=== PATIENT | female | born 2000 | race Caucasian/White ===

== ENCOUNTER 2024-02-02 19:51 | Inpatient (IN) | payer BC ==
[~2024-02-02 19:51] MED LIST: Bupivacaine 0.25% HCL 30 ML VIAL ONE
[2024-02-02] MEDS ORDERED: fentaNYL 50 mcg/mL 1 mL Vial SLOW IVP PRN (20:12)
[2024-02-02] MEDS ORDERED: Promethazine HCl 25 MG/ML VIAL IM PRN (20:12)
[2024-02-02] MEDS ORDERED: Ondansetron PF 4 MG/2 ML Vial IVP PRN (20:12)
[2024-02-02] MEDS ORDERED: Lactated Ringer's 1,000 ML IV SCH (20:12)
[2024-02-02] MEDS ORDERED: hydrALAZINE 20 MG/ML VIAL SLOW IVP PRN (20:12)
[2024-02-02] MEDS ORDERED: HYDROcodone/Acetaminophen 5/325 mg Tablet PO PRN (20:12)
[2024-02-02] MEDS ORDERED: Ibuprofen 800 MG TAB PO PRN (20:12)
[2024-02-02] MEDS ORDERED: Oxytocin 30 units/NS 500 ML 500 ML IV SCH ×2 (20:12)
[2024-02-02 21:07] LABS: Hematocrit 31.2 % (34.9-44.5); Hemoglobin 10.3 g/dL (12.0-15.5); Mean Corpuscular Hemoglobin 24.5 pg (27.0-33.0); Mean Corpuscular Volume 74.1 fL (81.6-98.3); Mean Platelet Volume 10.9 fL (7.4-10.4); Platelet Count 305 10x3/uL (150-450); Red Blood Cell (RBC) Count 4.21 10x6/uL (3.90-5.03); White Blood Cell (WBC) Count 13.6 10x3/uL (3.5-10.5)
[2024-02-02 22:07] LABS: HBsAg Index 0.19 S/CO (0-0.99); Hep B Surf Ag - L&D Non-Reactive S/CO (NonReactive)
[2024-02-02 22:08] LABS: Syphilis Antibody Nonreactive (Nonreactive); Syphilis Antibody Index 0.04 S/CO (<1.00 Non-Reactive)
[2024-02-02 22:42] VITALS: BMI 32.1
[2024-02-02] MEDS: Misoprostol 100 MCG TAB VAG SCH (23:20)
[2024-02-03] MEDS: Oxytocin 30 units/NS 500 ML 500 ML IV SCH ×2 (07:30→19:30)
[2024-02-03] MEDS ORDERED: Ondansetron PF 4 MG/2 ML Vial IVP PRN ×2 (10:35→20:36)
[2024-02-03] MEDS ORDERED: Moisturizing Cream (Eucerin) 113 GM JAR TOP PRN (10:35)
[2024-02-03] MEDS ORDERED: Naloxone HCl 0.4 mg/ml Vial IVP PRN ×2 (10:35)
[2024-02-03] MEDS ORDERED: Promethazine HCl 25 MG/ML VIAL IM PRN ×2 (10:35→20:36)
[2024-02-03] MEDS ORDERED: Acetaminophen 325 MG TAB PO PRN (10:35)
[2024-02-03] MEDS ORDERED: diphenhydrAMINE 50 MG/ML VIAL IVP PRN (10:35)
[2024-02-03] MEDS ORDERED: Lactated Ringer's 500 ML IV PRN (10:35)
[2024-02-03] MEDS ORDERED: ePHEDrine Sulfate 50 MG/10 ML VIAL SLOW IVP PRN (10:35)
[2024-02-03] MEDS ORDERED: Communication Order-Pharmacy FS SCH (10:45)
[2024-02-03] MEDS: fentaNYL/Ropivacaine Epidural 100 ML ONE (11:03)
[2024-02-03] MEDS: fentaNYL 2 mcg/Ropivacaine 0.2% Epidural 100 ML CADD EPIDURAL SCH (19:09)
[2024-02-03] MEDS: Lidocaine 1% (PF) 30 ML VIAL SC PRN (19:45)
[2024-02-03] MEDS ORDERED: diphenhydrAMINE 25 MG CAP PO PRN (20:36)
[2024-02-03] MEDS ORDERED: Bisacodyl 10 MG SUPP PR PRN (20:36)
[2024-02-03] MEDS ORDERED: Preparation H Ointment 28 GM TUBE PR PRN (20:36)
[2024-02-03] MEDS ORDERED: Lanolin Ointment 7 GM TUBE TOP PRN (20:36)
[2024-02-03] MEDS ORDERED: hydrALAZINE 20 MG/ML VIAL SLOW IVP PRN (20:36)
[2024-02-03] MEDS ORDERED: HYDROcodone/Acetaminophen 5/325 mg Tablet PO PRN (20:36)
[2024-02-03] MEDS ORDERED: Boostrix 0.5 ML (Tdap) VIAL (>/=7 yrs of age) IM ONE (20:36)
[2024-02-03] MEDS: Ibuprofen 800 MG TAB PO SCH (20:51)
[2024-02-03] MEDS: Docusate 100 MG CAP PO SCH (23:29)
[2024-02-03] MEDS: Misoprostol 200 MCG TAB PR SCH (23:30)
[2024-02-03] MEDS: Misoprostol 200 MCG TAB ONE (23:31)
[2024-02-03] MEDS: Benzocaine-Menthol 82.5 ML CAN TOP PRN (23:31)
[2024-02-04] MEDS: HYDROcodone/Acetaminophen 5/325 mg Tablet PO PRN (01:06)
[2024-02-04 03:53] LABS: Hematocrit 25.7 % (34.9-44.5); Hemoglobin 8.3 g/dL (12.0-15.5)
[2024-02-04] MEDS: Milk Of Magnesia 30 ML UDCUP PO PRN (08:55)
[2024-02-04] MEDS: Ferrous Sulfate 325 MG TAB PO SCH (08:55)
[2024-02-04] MEDS: Prenatal Vitamin 1 TAB PO SCH (08:55)
[2024-02-05 07:46] VITALS: BP 107/58; TEMP 97.6
== END 2024-02-05 15:15 | disposition home or self-care (01) | DRG 768 ==
LOC: CSHLD 19:51 → CSHPED 02-03 22:15
PROVIDERS: ADMIT Obstetrics & Gynecology; ATTEND Obstetrics & Gynecology
PROC: 3E0P7VZ Introduction of Hormone into Female Reproductive, Via Natural or Artificial Opening (ICD-10-PCS; 2024-02-02)
PROC: 10E0XZZ Delivery of Products of Conception, External Approach (ICD-10-PCS; principal; 2024-02-03)
PROC: 0DQR0ZZ Repair Anal Sphincter, Open Approach (ICD-10-PCS; 2024-02-03)
PROC: 3E033XZ Introduction of Vasopressor into Peripheral Vein, Percutaneous Approach (ICD-10-PCS; 2024-02-03)
DX: O70.20 Third degree perineal laceration during delivery, unspecified (principal); Z37.0 Single live birth; D62 Acute posthemorrhagic anemia; Z3A.39 39 weeks gestation of pregnancy; Z88.0 Allergy status to penicillin; Z88.1 Allergy status to other antibiotic agents; O66.0 Obstructed labor due to shoulder dystocia; O69.81X0 Labor and delivery complicated by cord around neck, without compression, not applicable or unspecified; O99.02 Anemia complicating childbirth
CPT/HCPCS: 36415; 51701; 51702; 85014; 85018; 85027; 86780; 86850; 86900; 86901; 87340; J0665; J2001; J2590